=== PATIENT | female | born 1985 | race Caucasian/White ===

== ENCOUNTER 2021-06-14 07:45 | Day surgery (SDC) | payer MEDICARE ==
[~2021-06-14] VITALS: Ht 167.6 cm; Wt 122.7 kg
[~2021-06-14 07:45] MED LIST: LATUDA40 MG PO; STRATTERA80 MG PO; TRAZODONE HCL150 MG PO; ZOLOFT100 MG PO
--- NOTE | 2021-06-14 12:52 | NUR ---
06/14/21 1252 Angéilca Ferrell 1229- PT ARRIVES TO PACU NONAROUSABLE TO NOXIOUS STIMULI WITH AN OPA IN PLACE AND PT NEEDING A JAW THRUST TO MAINTAIN PATENT AIRWAY. ATTEMPTED TO REPOSITION PT'S HEAD TO MAINTAIN PATENT AIRWAY. UNABLE TO FIND POSITION TO MAINTAIN PATENT AIRWAY WITHOUT NEEDING A JAW THRUST. RESP EVEN AND SHALLOW. OXYGEN SAT LOW 90'S ON 6L VIA MASK. OXYGEN TITRATED UP TO 10L VIA MASK. 1234- HAVING DIFFICULTY GETTING ACCURATE BP. NEW LARGE CUFF APPLIED. MEAT PRODUCTS DEMONSTRATOR AWARE. PT'S RESP EVEN AND LABORED WITH PERIODS OF APNEA. ATTEMPTING TO AROUSE PT. PERIODS OF APNEA LAST ABOUT 5-10 SECONDS AND BREATHING INCREASES WITH PAINFUL STIMULI. 1241- PT REMAINS NEEDING A JAW THRUST TO MAINTAIN PATENT AIRWAY. PT WILL TRY TO WITHDRAW FROM PAINFUL STIMULI. DOES NOT OPEN EYES OR FOLLOW COMMANDS. RESP EVEN AND LABORED. OXYGEN SAT MID TO HIGH 90'S ON 10L VIA MASK. 1248- PT IS SLIGHTLY MORE AROUSABLE TO PAIN. DOES NOT OPEN EYES OR FOLLOW COMMANDS. WITHDRAWS TO PAIN. PT'S AIRWAY ABLE TO BE MAINTAINED NOW WITHOUT JAW THRUST. OPA REMAINS IN PLACE. PERIODS OF APNEA ARE BECOMING LESS FREQUENT.
[2021-06-14] MEDS ORDERED: HYDROCODON-ACE1 EA10 PO (12:53)
[2021-06-14] MEDS ORDERED: IBUPROFEN600 MG PO (12:53)
[2021-06-14] MEDS ORDERED: ACETAMINOPHEN500 MG PO (12:54)
--- NOTE | 2021-06-14 14:00 | NUR ---
1400-PATIENT BACK TO ROOM FROM PACU ON 2L VIA VT. RECEIVED REPORT FROM IMELDA BOLTON. PATIENT IS VERY DROWSY AND FALLS ASLEEP AT TIMES. PATIENT ANSWERES QUESTIONS APPROPRIATELY. VSS. PATIENT RATES PAIN 6/10. DENIES NAUSEA. BOTH DRESSINGS ARE CLEAN, DRY, AND INTACT. KAMRYN DRAIN HAS RED DRAINAGE. PROVIDED PATIENT WITH WATER, APPLESAUCE, AND CRACKERS. CALL LIGHT WITHIN REACH. 1411-PAIN MEDS GIVEN PER EMAR. LIGHT TURNED OFF AND PATIENT COVERED WITH BLANKET. CALL LIGHT WITHIN REACH.
--- NOTE | 2021-06-14 15:24 | NUR ---
1500-PATIETN AWAKE AND LAYING IN BED. PATIENT ON 2L VIA NC WITH SATS >95%. VSS. PATIENT RATES PAIN 5/10. DENIES NAUSEA. L BREAST DRESSING IS CLEAN, DRY, AN INTACT. LEFT AXILLARY DRESSING HAS 2 SMALL DOTS OF RED DRAINAGE. KAMRYN DRAIN HAS RED DRAINAGE. ORDERED PATIENT LUNCH. CALL LIGHT WITHIN REACH. 1515-LUNCH ARRIVED TO PATIENTS ROOM. 1517-PAIN MEDICATION GIVEN PER EMAR. DC'D O2 WITH SATS >95% ON RA.
--- NOTE | 2021-06-14 15:50 | NUR ---
9850-PATIENT UP TO RESTROOM WITH 1 RN ASSIST. GAIT STEADY AND TOLERATED WELL. PATIENT VOIDED 400ML. PATIENT BACK TO ROOM SITTING UP IN BED. PATIENT ASKS ABOUT A DIFFERENT RX FOR PAIN. STATES "I ALWAYS HAD SOMETHING STRONGER WITH MY SURGERIES". EXPLAINED DR. MALDONADO IS IN SURGERY AND WILL ASK WHEN DONE.
--- NOTE | 2021-06-14 16:00 | NUR ---
1600-PATIENT SITTING UP IN BED. VSS. SATS REMAINED >95% ON RA. LEFT BREAST DRESSING IS CLEAN, DRY, AND INTACT. LEFT AXILLARY DRESSING HAS 2 SMALL RED DOTS OF DRAINAGE. KAMRYN DRAIN WITH SMALL AMOUNT OF RED DRAINAGE. RATES PAIN 5/10. DENIES NAUSEA. IVÁN IS READY TO GO HOME.
--- NOTE | 2021-06-14 16:20 | NUR ---
1619-TALKED TO DR. MALDONADO AND HE PRESCRIBED PERCOCET 7.5/325 FOR PATIENT. CALLED [facility] AND CANCELLED FIRST RX AND EXPLAINED HER BOYFRIEND WOULD BE BRINGING A NEW RX TO FILL.
--- NOTE | 2021-06-14 16:30 | NUR ---
4380-PROVIDED PATIENT WITH DISCHARGE INSTRUCTIONS. DEMONSTRATED HOW TO EMPTY AND STRIP TUBING ON HER KAMRYN DRAIN. GAVE PATIENT HANDOUT ON KAMRYN DRAIN WITH SHEET TO RECORD TIMES AND AMOUNTS. PATIENT VERBALIZED UNDERSTANDING AND ALL QUESTIONS ANSWERED. PATIENT RATES HER PAIN A 5/10. OFFERED HER IBU BUT PATIENT DECLINES STATES "I HAVE IBU AND TYLENOL AT HOME". PATIENT AMBULATES TO WHEELCHAIR. PROVIDED RIDE TO FRONT OF HOSPITAL WHERE HER BOYFRIEND WAS WAITING WITH THE CAR.
--- NOTE | 2021-06-16 15:07 | OR ---
[facility] [address] [place], [place] [address] Signed DATE OF OPERATION: 06/14/2021 SURGEON: Karla Maldonado MD PREOPERATIVE DIAGNOSIS: Upper medial left breast infiltrating ductal carcinoma, ER/CA negative. POSTOPERATIVE DIAGNOSIS: Suspicious axillary lymph nodes, frozen pathology of underwriting service representative sentinel lymph node negative for metastatic disease however. PROCEDURES: 1. Injection of methylene blue for sentinel lymph node identification. 2. Left deep axillary lymph node biopsy. 3. Axillary dissection with placement of drain. 4. Left partial mastectomy with primary closure. ANESTHESIA: General LMA, Karla Price CRNA. INDICATION: This is a very pleasant, morbidly obese 35-year-old white woman is a patient of Dr. Renetta Casey. She was found to have a palpable mass in the medial upper left breast. She initially presented to Urgent Care, underwent mammogram on May 16, 2021 as ordered by RICH Arora and subsequently an ultrasound-guided breast biopsy on the left side by Dr. Maggie Negro in May 2021. The lesion was considered quite vascular. Final pathology showed a grade 3/3 ER negative, CA negative, HER-2/jake pending infiltrating ductal breast carcinoma approximately 4 cm from the nipple in the medial upper aspect. The patient is quite morbidly obese and it is difficult to ascertain axillary lymph nodes. Her BMI is 42.8 with a weight of 265 pounds. The options of management have been reviewed with her. She wishes to proceed with sentinel lymph node biopsy, possible axillary dissection based on defined criteria as well as partial mastectomy anticipating radiation therapy and other interventions as appropriate. She does have family history of breast cancer in a great grandmother, but none in her mother or sister. The patient understands risks of bleeding, infection, nerve injury, anticipated plan for radiation therapy post procedure, need for additional treatment to possibly include chemotherapy, particularly given the lesion being high-grade and ER/CA negative and quite likely HER-2/jake negative though that is not known yet as well as Electronically Signed By: KARLA MALDONADO MD 06/16/21 1507 PATIENT NAME: OLIVERIO VELA OPERATIVE REPORT DATE OF : [birth year] REPORT #: [id number] PHYSICIAN: KARLA MALDONADO MD PCP: DINH RAZO REPORT IS CONFIDENTIAL AND NOT TO BE RELEASED WITHOUT AUTHORIZATION [facility] [address] [place] [id number] Signed cosmetic deformity, numbness or tingling, or other associated symptoms related to surgery. Understanding that she wished to proceed. FINDINGS: Methylene blue dye injection for sentinel lymph node identification was undertaken. There was good uptake in lymphatics of the breast, but actual lymph node aggregate with dye was not forthcoming requiring more extensive axillary dissection. Ultimately, a high apical small blue lymph node was identified. Frozen pathology showed it to be benign. In surgical exploration of the axilla, there were several enlarged palpable nodes highly suspicious for malignancy and on the basis of these findings, axillary dissection was additionally undertaken. The long thoracic and thoracodorsal neurovascular bundles were identified and preserved. As regard to tumor, it was rather bulky and approximately 2 to 3 cm in size based on clinical assessment. Wide resection was undertaken with a clinically negative margin. The specimen was marked in the superior and lateral marked orientation anticipating final pathology. She was quite morbidly obese. Breast parenchymal reapproximation to cover the defect was rather straightforward requiring no elaborate rotational grafts or other advance methods. A drain was left in place related to axillary dissection. DESCRIPTION OF PROCEDURE: The patient was brought to the operating room, given a general anesthetic by LMA technique. Preoperative antibiotic Ancef was given. Sequential compression device stockings used and heparin subcutaneously administered. The left breast, axilla, and arm were prepared with a Betadine-based solution and draped sterilely. Injection of 2.5 mL of methylene blue dye in the subepithelial and subdermal area was undertaken by me prior to preparation and draping and breast was massaged briefly as well. The patient's body habitus was such that her axilla was a broad space. An area most typical for sentinel lymph node biopsy was identified and small transverse incision was made with a #15 blade in the [id number] axilla. Dissection was carried through the subcutaneous tissue with electrocautery. Using blunt dissection primarily, the search for the sentinel lymph node with dye uptake was undertaken. A fair amount of dissection was undertaken as the broad deep and wide axillary contents were more than usual. The medial inferior aspect of methylene blue dye laden lymphatic channels were identified and dissected free following the pathway as far as possible. To my surprise, they did not accumulatein any obvious lymph nodes proper; on that basis, additional dissection was required superiorly. The axillary incision was extended a bit and dissection undertaken. There was ultimately found to be a blue lymph node at the apex of the axilla adjacent to the axillary vein. This was dissected free and passed for pathology. At this point, the amount of dissection had been rather extensive to find the sentinel lymph node. Further dissection then revealed palpably very suspicious lymph nodes given their size, enlargement, and firmness. As much of the dissection had Electronically Signed By: KARLA MALDONADO MD 06/16/21 1507 PATIENT NAME: OLIVERIO VELA OPERATIVE REPORT DATE OF : [birth year] REPORT #: [id number] PHYSICIAN: KARLA MALDONADO MD PCP: DINH RAZO-Pete REPORT IS CONFIDENTIAL AND NOT TO BE RELEASED WITHOUT AUTHORIZATION [facility] [address] [place], [place] [address] Signed been completed, axillary dissection was further undertaken in the standard way, sparing the long thoracic and thoracodorsal neurovascular bundles. Clips were applied as appropriate. A generous specimen of axillary fat with palpably suspicious lymph nodes was ultimately explanted. By this time, the frozen pathology returned the sentinel lymph node to be negative for metastatic disease, though it was small. Dissection ex vivo of the axillary contents showed several large methylene blue laden lymph nodes, some of them quite suspicious and one at least 2.5 cm in size. Another was nearly 2 cm. The size of the nodes were worrisome for metastatic disease and thus the axillary dissection was well justified. Irrigation was undertaken of the axilla with sterile water showing no sign of ongoing bleeding. The wound was then packed. Attention was then turned toward the breast tumor proper. It was easily palpable in the medial superior aspect on the left side. A transverse incision was made directly over it. Dissection carried through the dermis with electrocautery. Multiple accessory blood vessels were noted in the subcutaneous tissue. Some were secured with ties, other secured with electrocautery. Superior and inferior flaps were developed using electrocautery maintaining a clinically negative margin throughout. Dissection was then undertaken down to the pectoralis fascia and excision was taken in a medial to lateral aspect, excising an amount of tissue, easily the size of a small potatoe-- 8 cm at least. Irrigation was undertaken and palpation of the breast cavity showed no suspicious texture to the parenchyma. Given the patient's significantly large body habitus, parenchymal reapproximation was undertaken without requirement for advanced flap mobilization. This was undertaken with interrupted 2-0 Vicryl suture. The skin was closed with running subcuticular 3-0 Vicryl. The specimen had been oriented with a short stitch superior and long stitch laterally. Inspection of the axilla was undertaken showing no sign of bleeding or other problems. Through a separate stab incision, a 7 mm flat Tommy drain was placed. Secured to the skin with nylon suture and attached to bulb suction later. The wound was closed in layers with interrupted 2-0 Vicryl and running subcuticular 3-0 Vicryl. Steri-Strips were applied. The patient was ultimately extubated and transferred to the recovery room in good condition. Sponge, needle, and instrument counts were reported as correct x3. Blood loss was estimated at 50 mL. Karla Maldonado MD Electronically Signed By: KARLA MALDONADO MD 06/16/21 1507 PATIENT NAME: OLIVERIO VELA OPERATIVE REPORT DATE OF : [birth year] REPORT #: [id number] PHYSICIAN: KARLA MALDONADO MD PCP: DINH RAZO REPORT IS CONFIDENTIAL AND NOT TO BE RELEASED WITHOUT AUTHORIZATION [address] [place] [address] Signed /MODL /[id number] cc: Dr. Renetta Negro MD Copies: MAGGIE NEGRO MD ~ Electronically Signed By: KARLA MALDONADO MD 06/16/21 1507 PATIENT NAME: OLIVERIO VELA OPERATIVE REPORT DATE OF : 83 REPORT #: [id number] PHYSICIAN: KARLA MALDONADO MD PCP: DINH RAZO REPORT IS CONFIDENTIAL AND NOT TO BE RELEASED WITHOUT AUTHORIZATION
--- NOTE | 2021-06-18 15:37 | PATH ---
[facility] [address] [facility] [place] [facility] [place], [place] [address] Signed SPECIMEN(S): A LEFT AXILLARY, BLUE SENTINEL LYMPH NODE SPECIMEN(S): B BREAST, MASTECTOMY, PARTIAL/SIMPLE - LEFT SPECIMEN(S): C LEFT SENTINEL LYMPH NODE, HIGH APEX OF AXILLA SPECIMEN SOURCE: A. LEFT AXILLARY, BLUE SENTINEL LYMPH NODE B. BREAST, MASTECTOMY, PARTIAL/SIMPLE - LEFT C. LEFT SENTINEL LYMPH NODE, HIGH APEX OF AXILLA CLINICAL HISTORY: Infiltrating ductal carcinoma, left breast. Left breast lumpectomy with sentinel lymph node biopsy with injection of methyl blue with possible axillary dissection. FROZEN SECTION DIAGNOSIS: C. [place] lymph node high apex of axilla: - Negative for metastatic carcinoma. (Dr. Guo, 06/14/2021, 1138) Location of frozen procedure: [facility] Frozen section diagnosis called to Dr. Wheatley at 1138. (under the direct supervision of a pathologist) The Gross Description was prepared using a voice recognition system. The report was reviewed for accuracy; however, sound-alike word errors, addition and/or deletions may occur. If there is any question about this report, please contact Client Services. FINAL PATHOLOGIC DIAGNOSIS: A. Lymph nodes, left axillary, excision: - Thirteen lymph nodes, negative for metastatic carcinoma (0/13). B. Breast, left upper medial, lumpectomy: - Invasive ductal carcinoma with the following features: - Tumor site: Upper inner quadrant. - Tumor size: 36 x 32 x 29 mm. - Histologic type: Invasive carcinoma of no special type (ductal). - Histologic grade: - Glandular differentiation: Score 3 of 3. - Nuclear pleomorphism: Score 3 of 3. - Mitotic rate: Score 3 of 3. - Overall grade: 3 or 3 (total score 9 of 9). - Associated in situ component: DCIS is present, flat type, high nuclear grade, without necrosis, no extensive. - Margins: PATIENT NAME: OLIVERIO VELA PATHOLOGY DATE OF : 83 REPORT #: [id number] PHYSICIAN: YESICA MILLER PCP: DINH RAZO REPORT IS CONFIDENTIAL AND NOT TO BE RELEASED WITHOUT AUTHORIZATION [facility] [address] [place], [place] [address] Signed - Invasive: Uninvolved by invasive carcinoma. - Distance to closest margin: 4 mm, lateral margin (macroscopic measurement). - DCIS: Uninvolved by DCIS. - Distance to closest margin: 1 mm, medial margin. - Regional lymph nodes (includes parts A and C: - Uninvolved by tumor cells. - Total number of lymph nodes examined: 14. - Number of sentinel lymph nodes examined: 2. - Treatment effect: No known pre-surgical therapy. - Additional pathologic findings: Biopsy site changes, flat epithelial atypia, fibrocystic changes, fibroadenomatous changes. - Ancillary studies: Please refer to studies previously performed (Accession number [id number]) which were reported as ER negative, RI negative, HER2 negative by IHC. - Surgical pathology stage: pT2 pN0. C. Lymph node, sentinel "high apex of axilla", excision: - One lymph node, negative for metastatic carcinoma (0/1) COMMENT: A, C) Immunohistochemical stains for AE1/AE3 are performed selected blocks and support the above interpretation. As part of [employer] Quality Improvement Program, this case was reviewed by another member of our pathology staff. BRP:DDF:cml:C1NR MICROSCOPIC EXAMINATION: Histologic sections of all submitted blocks are examined by light microscopy. These findings, together with the gross examination, support the pathologic diagnosis. GROSS DESCRIPTION: Three specimens are received in three containers, labeled "MP." A. The specimen, labeled "MP, B," and designated on the requisition "left axillary contents blue sentinel nodes," is received in formalin and consists of a portion of yellow-vasquez fatty tissue (13.0 x 8.9 x 2.3 cm). The tissue is palpated and 16 possible lymph nodes are identified (0.4-2.5 cm in greatest dimension). One lymph node is blue tinted and measures 2.5 cm in greatest dimension. (A1-A4) blue-tinted possible lymph node, serially sectioned (SLN) PATIENT NAME: OLIVERIO VELA PATHOLOGY DATE OF : 83 REPORT #: [id number] PHYSICIAN: YESICA PATHOLOGY PCP: DINH RAZO REPORT IS CONFIDENTIAL AND NOT TO BE RELEASED WITHOUT AUTHORIZATION [address] [address] Signed (A5) four possible lymph nodes, intact (A6) four possible lymph nodes, intact (A7) two possible lymph nodes, one inked blue, both bisected (A8) one possible lymph node, bisected (A9) one possible lymph node, bisected (A10) one possible lymph node, bisected (A11-A12) one possible lymph node, serially sectioned (A13-A15) one possible lymph node, serially sectioned Cold ischemic time: Eight minutes The specimen was fixed in formalin for 47hours B. The specimen, labeled "MP, C," and designated on the requisition "left upper medial breast cancer, short stitch superior margin, long stitch lateral margin," is received in formalin and consists of an oriented portion of yellow vasquez fatty to pink-vasquez fibrous tissue (189 g, 9.7 cm anterior to posterior, 8.0 cm superior to inferior, 5.2 cm medial to lateral). The specimen is inked as follows: Blue = superior Green = inferior Yellow = anterior Black = posterior Red = medial [place] = lateral The specimen is serially sectioned from anterior to posterior into 16 slices to reveal a pink-vasquez nodular firm mass (3.6 x 3.2 x 2.9 cm) in slices 4-9. The mass is located 0.4 cm from the lateral margin, 1.0 cm from the inferior margin, 1.2 cm from the superior margin, 1.4 cm from the medial margin,1.5 cm from the anterior margin, and 5.3 cm from the posterior margin. There are and cut surface shows yellow-vasquez fatty to pink-vasquez fibrocystic tissue (30% fibrocystic). Gross photographs are taken and uploaded into [employer]. Scale Tank Operator sections are submitted as follows: (B1) slice one, anterior margin, perpendicular sections (B2) slice four, mass to lateral margin (B3) slice four, closest inferior margin (B 4) slice five, mass to lateral margin (B5) slice six, mass to lateral margin (B6) slice six, closest superior margin (B7) slice seven, closest medial margin (B8) slice eight, mass to closest lateral (B9) slice eight, mass to uninvolved PATIENT NAME: OLIVERIO VELA PATHOLOGY DATE OF : 83 REPORT #: [id number] PHYSICIAN: YESICA MILLER PCP: DINH RAZO REPORT IS CONFIDENTIAL AND NOT TO BE RELEASED WITHOUT AUTHORIZATION [facility] [address] [place], [place] [address] Signed (B10) slice 11, fibrocystic tissue (B11) slice 13, fibrocystic tissue (B12) slice 16, posterior margin, perpendicular sections Cold ischemic time: Eight minutes The specimen was fixed in formalin for 47 hours C. The specimen, labeled "MP, A," and designated on the requisition "sentinel lymph node high apex of axilla," is received fresh for frozen section and consists of one lymph node measuring 0.6 x 0.5 x 0.5 cm. The frozen section was performed. The frozen section remnant is submitted entirely in cassette C1. Cold ischemic time: cannot be calculated due to insufficient information The specimen was fixed in formalin for over 72 hours ADDITIONAL NOTES: Immunohistochemical and/or in situ hybridization studies were performed on this case with the appropriate positive controls that react as expected. This test was developed and its performance characteristics determined by [employer] It has not been cleared or approved by the U.S. Food and Drug Administration. The FDA has determined that such clearance or approval is not necessary. This test is used for clinical purposes. It should not be regarded as investigational or for research. [employer] is certified under the Clinical Laboratory Improvement Amendments of 1988 (CLIA) as qualified to perform high complexity clinical laboratory testing. This assay has not been validated for specimens that have been decalcified. PERFORMING LABORATORY: The technical component was performed by [employer] [address] [place] [address] (Branch Store Manager: Hui Torres MD; CLIA# [id number]). Frozen section performed at [facility], [address] [place], [place] [address] (CLIA# [id number]). Professional interpretation [facility], [address] [address] (CLIA# [id number]). Diagnostician: Ced Guo MD Pathologist Electronically Signed 06/18/2021 PATIENT NAME: OLIVERIO VELA MAG PATHOLOGY DATE OF : 83 REPORT #: [id number] PHYSICIAN: YESICA PATHOLOGY PCP: DINH RAZO REPORT IS CONFIDENTIAL AND NOT TO BE RELEASED WITHOUT AUTHORIZATION [facility] [address] [place], [place] [address] Signed Copies: ~ PATIENT NAME: OLIVERIO VELA PATHOLOGY DATE OF : [birth year] REPORT #: [id number] PHYSICIAN: YESICA MILLER PCP: DINH RAZO REPORT IS CONFIDENTIAL AND NOT TO BE RELEASED WITHOUT AUTHORIZATION
== END 2021-06-14 16:30 | disposition home or self-care (01) ==
LOC: DS 07:45
PROVIDERS: ATTEND Surgery
PROC: 0HBU0ZZ Excision of Left Breast, Open Approach (ICD-10-PCS; principal; 2021-06-14 09:00)
DX: C50.212 Malignant neoplasm of upper-inner quadrant of left female breast (principal); Z17.1 Estrogen receptor negative status [ER-]; E66.01 Morbid (severe) obesity due to excess calories; Z68.41 Body mass index [BMI] 40.0-44.9, adult; Z87.891 Personal history of nicotine dependence; J45.909 Unspecified asthma, uncomplicated; I10 Essential (primary) hypertension; Z80.3 Family history of malignant neoplasm of breast; F25.9 Schizoaffective disorder, unspecified; F32.A Depression, unspecified; Q07.00 Arnold-Chiari syndrome without spina bifida or hydrocephalus; G47.00 Insomnia, unspecified; R63.8 Other symptoms and signs concerning food and fluid intake; G47.33 Obstructive sleep apnea (adult) (pediatric); G89.29 Other chronic pain
CPT/HCPCS: 00404; J0131; J0690; J1100; J1644; J1790; J1885; J2250; J2270; J2405; J2550; J2704; J2765; J3010; J7121; Q9968

== ENCOUNTER 2021-11-15 06:40 | Emergency (ER) | payer MEDICARE, OTHER ==
[~2021-11-15] VITALS: Ht 167.6 cm; Wt 128.8 kg
[~2021-11-15 06:40] MED LIST changes: +ACETAMINOPHEN500 MG PO; +CALCIUM-FOLIC1 EACH PO; +HYDROCODON-ACE1 EA10 PO; +IBUPROFEN600 MG PO; +MULTI VITAMIN1 EACH PO; +OSTERA TABLET1 EACH PO; +OXYCODON-ACETA1 EAC2 PO
--- OUTSIDE RECORDS SUMMARY | 2021-11-15 06:42 | XMS ---
PreManage Notification: OLIVERIO VELA Security Data Coder Operator Events No recent Security Events currently on file CRITERIA MET - [facility] Current PH[facility]: [phone] [facility]: Unknown Simran has no Care Guidelines for this patient. Lucia VISIT COUNT (12 MO.) Jorden Solorio TOTAL 1 NOTE: Visits indicate total known visits. ED/UCC VISIT TRACKING (12 MO.) 11/15/2021 06:41 [facility] TYPE: Emergency COMPLAINT: - HEADACHE, DIZZY, LIGHTHEADED, NAUSEA INPATIENT VISIT TRACKING (12 MO.) No inpatient visits to display in this time frame [email or web address]
[2021-11-15] MEDS ORDERED: ONDANSETRON ODT8 MG PO (06:53)
== END 2021-11-15 08:43 | disposition home or self-care (01) ==
LOC: ED 06:40
DX: G43.909 Migraine, unspecified, not intractable, without status migrainosus (principal); Z85.3 Personal history of malignant neoplasm of breast; G47.33 Obstructive sleep apnea (adult) (pediatric); Z79.899 Other long term (current) drug therapy
CPT/HCPCS: 36415; 70470; 80053; 83615; 83735; 84703; 85025; 99284-25; J1100; J2270; J2405; Q9967

== ENCOUNTER → 2022-09-12 | Emergency (ER) | payer MEDICARE, OTHER ==
[~2022-09-12] VITALS: Ht 167.6 cm; Wt 123.9 kg
[~2022-09-12] MED LIST changes: +ATENOLOL25 MG PO; +ATIVAN1 MG PO; +CEPHALEXIN500 M1 PO; +ONDANSETRON ODT8 MG PO; +OXYCODONE-ACET1 EAC1 PO; +SULFAMETHOXAZO1 EAC1 PO
--- OUTSIDE RECORDS SUMMARY | 2022-09-12 16:39 | XMS ---
PreManage Notification: OLIVERIO VELA Security Manager Plan Events No recent Security Events currently on file CRITERIA MET - [facility] PROVID[facility] Current PHONE: [phone] [facility]: Unknown Simran has no Care Guidelines for this patient. Lucia VISIT COUNT (12 MO.) Sunny Solorio TOTAL 3 NOTE: Visits indicate total known visits. ED/UCC VISIT TRACKING (12 MO.) 09/12/2022 16:32 [facility] TYPE: Emergency COMPLAINT: - POST OP ISSUE 04/20/2022 12:35 [facility] TYPE: Emergency COMPLAINT: - POST OP PROBLEM 11/15/2021 06:41 [facility] TYPE: Emergency COMPLAINT: - HEADACHE, DIZZY, LIGHTHEADED, NAUSEA DIAGNOSES: - Obstructive sleep apnea (adult) (pediatric) - Personal history of malignant neoplasm of breast - Other longterm (current) drug therapy - Headache, unspecified - Migraine, unspecified, not intractable, without status migrainosus INPATIENT VISIT TRACKING (12 MO.) 04/20/2022 12:[address] [facility] TYPE: Observation COMPLAINT: - WASHOUT AND REMOVAL OF IMPLANT TO LEFT MASTECTOMY DIAGNOSES: - Essential (primary) hypertension - Contact with and (suspected) exposure to COVID-19 - Allergy status to narcotic agent - Infection following a procedure, deep incisional surgical site, initial encounter - Allergy status to other drugs, medicaments and biological substances - Other reconstructive surgery as the cause of abnormal reaction of the patient, or of later complication, without mention of misadventure at the time of the procedure - Mastitis without abscess - Personal history of malignant neoplasm of breast [email or web address]
== END ==
LOC: ED 16:31
DX: T81.31XA Disruption of external operation (surgical) wound, not elsewhere classified, initial encounter (principal); N61.0 Mastitis without abscess; C50.919 Malignant neoplasm of unspecified site of unspecified female breast; G47.33 Obstructive sleep apnea (adult) (pediatric); Z79.899 Other long term (current) drug therapy; Z88.5 Allergy status to narcotic agent; Z88.7 Allergy status to serum and vaccine; Z90.13 Acquired absence of bilateral breasts and nipples
CPT/HCPCS: 99283; A9270

== ENCOUNTER 2024-09-15 07:47 | Emergency (ER) | payer MEDICARE, MEDICAID ==
[~2024-09-15] VITALS: Ht 167.6 cm; Wt 117.0 kg
[2024-09-15 09:29] LABS: BASOPHILS 0.5 % (0-2); EOSINOPHILS 1.9 % (0-6); HEMATOCRIT 39.1 % (35.0-50.0); HEMOGLOBIN 13.6 g/dL (12.0-18.0); LYMPHOCYTES 22.2 % (24-44); MCH 29.4 (27-36); MCHC 34.9 g/dl (30-36); MCV 84.2 fl (81-99); MONOCYTES 5.5 % (0-12); NEUTROPHILS 69.9 % (39-80); PLATELET COUNT 338 K/uL (140-440); RBC 4.64 M/ul (4.3-5.7); RDW 13.5 (10.5-15.0)
[2024-09-15] MEDS ORDERED: ondansetron HCL 4 MG/2 ML VIAL IV ONE (09:45)
[2024-09-15] MEDS ORDERED: HYDROmorphone HCL 1 MG/ML SYR IV ONE (09:45)
[2024-09-15 09:50] LABS: ALBUMIN 3.5 g/dL (3.4-5.0); ALBUMIN/GLOBULIN RATIO 1.03 (1.1-2.4); ANION GAP 16.2 (7-21); BILIRUBIN, TOTAL 0.3 ng/dL (0.2-1.0); BUN/CREATININE RATIO 19.35 (6.0-28.6); CALCIUM 9.3 mg/dL (8.5-10.1); CREATININE, SERUM 0.62 mg/dL (0.55-1.02); MAGNESIUM 1.8 mg/dL (1.8-2.4); POTASSIUM 4.2 mmol/L (3.5-5.1); PROTEIN, TOTAL 6.9 g/dL (6.4-8.2)
[2024-09-15 11:33] VITALS: BP 151/112
== END 2024-09-15 11:33 | disposition home or self-care (01) ==
LOC: ED 07:47
PROVIDERS: Internal Medicine
DX: I89.0 Lymphedema, not elsewhere classified (principal); C50.912 Malignant neoplasm of unspecified site of left female breast; G47.33 Obstructive sleep apnea (adult) (pediatric); Z90.13 Acquired absence of bilateral breasts and nipples; Z88.8 Allergy status to other drugs, medicaments and biological substances; Z88.7 Allergy status to serum and vaccine; Z88.5 Allergy status to narcotic agent; Z79.899 Other long term (current) drug therapy
CPT/HCPCS: 36415; 71260; 74177; 80053; 83735; 83880; 84703; 85025; 99284-25; J1171; J2405; Q9967

== ENCOUNTER 2025-06-07 15:55 | Emergency (ER) | payer MEDICARE, OTHER ==
[~2025-06-07] VITALS: Ht 167.6 cm; Wt 118.5 kg
[~2025-06-07 15:55] MED LIST changes: +DEXTROAMP-AMPHE30 MG PO
[2025-06-07] MEDS ORDERED: LOSARTAN-HCTZ1 EAC1 PO (18:27)
[2025-06-07 18:51] LABS: BASOPHILS 0.3 % (0.1-1.2); EOSINOPHILS 0.4 % (0.7-5.8); LYMPHOCYTES 25.3 % (19.3-51.7); MCH 28.7 PG (25.6-32.2); MCHC 34.9 g/dL (32.2-35.5); MCV 82.4 fL (79.4-94.8); MONOCYTES 5.6 % (4.7-12.5); NEUTROPHILS 68.2 % (34.0-71.1); RBC 4.49 M/uL (3.93-5.22)
[2025-06-07 19:02] LABS: ALT (SGPT) 33.0 U/L (14-59); AST (SGOT) 16.0 U/L (15-37); GLOMERULAR FILTRATION RATE,EST 119.0 mL/min (>60); PROTEIN, TOTAL 7.2 g/dL (6.4-8.2); UREA NITROGEN 13.0 mg/dL (7-18)
[2025-06-07] MEDS ORDERED: PERIDEX473 M1 MM (21:47)
[2025-06-07] MEDS ORDERED: methylPREDNISolone 4 MG HOME.PACK PO ONE (22:00)
[2025-06-07 22:46] VITALS: BP 158/95
== END 2025-06-07 22:47 | disposition home or self-care (01) ==
LOC: ED 15:55
PROVIDERS: Family Medicine
DX: I89.0 Lymphedema, not elsewhere classified (principal); Z88.8 Allergy status to other drugs, medicaments and biological substances
CPT/HCPCS: 36415; 70470; 70491; 80053; 85025; 99284-25; Q9967